=== PATIENT | female | born 1930 | race Caucasian/White ===

== ENCOUNTER 2017-01-21 17:38 | Emergency (ER) | payer OTHER ==
--- NOTE | 2017-01-21 18:06 | EDPHY ---
H & P Time Seen by Provider: 01/21/17 18:05 HPI/ROS: CHIEF COMPLAINT: Shortness of breath. HISTORY OF PRESENT ILLNESS: 86-year-old female with CHF presents with shortness of breath. Last night at 2100 she developed shortness of breath while watching television. She describes the shortness of breath as feeling like she couldn't take a deep breath. The shortness of breath worsened with lying flat. She fell asleep at 0400 and felt better after sleeping for 2 hours. When she awoke, her symptoms completely resolved. She has been asymptomatic today. No shortness of breath with exertion or at rest. She denies associated chest pain. No leg pain, chills, myalgia, cough, or other complaints. She has a history of similar symptoms related to CHF. No recent change in medications. REVIEW OF SYSTEMS: A complete 10-point review of systems was performed and is negative except for those items mentioned in the HPI. Past Medical/Surgical History: Macular degeneration, hypertension, diabetes, CVA, CHF, left total knee replacement, chronic LLE swelling, NH, renal insufficiency. Social History: Former smoker. Smoking Status: Former smoker Physical Exam: General Appearance: Alert, pleasant Eyes: Pupils equal and round, no conjunctival pallor or injection ENT, Mouth: Mucous membranes moist Neck: Normal inspection Respiratory: Rales at both bases Cardiovascular: Regular rate and rhythm Gastrointestinal: Abdomen is soft and non-tender Neurological: A&O, nonfocal, normal gait Skin: Warm and dry, no rash Extremities: 1+ pedal edema, left greater than right, Nontender Psychiatric: Mood and affect normal Constitutional: Initial Vital Signs Temperature (C) 36.4 C 01/21/17 17:39 Heart Rate 67 01/21/17 17:39 Respiratory Rate 18 01/21/17 17:39 Blood Pressure 170/70 H 01/21/17 17:39 O2 Sat (%) 91 L 01/21/17 17:39 O2 Delivery Mode Room Air Allergies/Adverse Reactions: Iodinated Contrast Media - Oral and [Iodinated Contrast Media - IV Dye] Allergy (Severe, Verified 01/21/17 17:39) renal failure Penicillins Allergy (Mild, Verified 01/21/17 17:43) Rash contrast Allergy (Uncoded 01/23/15 17:29) Home Medications: Medication Instructions Recorded Acetaminophen [Tylenol 325mg (*)] 650 mg PO Q6 PRN 01/23/15 Aspirin EC [Aspirin EC 81 mg (*)] 81 mg PO DAILY 01/23/15 Amiodarone HCl [Pacerone] 100 mg PO DAILY #30 tablet 02/08/15 Insulin Glargine [Lantus 100 11 units SC HS #1 btl 02/08/15 UNITS/ML (*)] Insulin Lispro [humALOG LISPRO 100 0 unit SC TIDMEAL #1 btl 02/08/15 units/ml (*)] Metoprolol Tartrate [Lopressor 25 25 mg PO BID #60 tab 02/08/15 mg (*)] Pravastatin Sodium [Pravachol] 40 mg PO HS #30 tablet 02/08/15 Warfarin Sodium [Coumadin 2MG (*)] 2 mg PO TU@16 #4 tab 02/08/15 Warfarin Sodium [Coumadin 4MG (*)] 4 mg PO SUMOWETHFRSA@16 #28 tab 02/08/15 amLODIPine BESYLATE [Norvasc 10 mg 10 mg PO HS #30 tab 02/08/15 (*)] Furosemide [Lasix 20 MG (*)] 20 mg PO DAILY #3 tab 01/21/17 Medical Decision Making - Diagnostics EKG Interpretation: EKG interpreted by me reveals normal sinus rhythm, rate 66, poor R-wave progression, in no ST or T segment changes. Imaging: Chest x-ray reviewed by me reveals cardiomegaly. ED Course/Re-evaluation: This patient presents more than 12 hours after an episode of shortness of breath. She has been asymptomatic throughout the day. Oxygen saturation is 93 % on room air. Stat EKG reveals no evidence ischemia or dysrhythmia. Chest x- ray reveals cardiomegaly, but no evidence of pulmonary edema. BNP is elevated at 1800 and troponin is normal. With a normal troponin, now greater than 12 hours after the episode, I feel that I can safely exclude exclude acute coronary syndrome. Given the elevated BNP, she may a component of congestive heart failure. Admission was offered, but the patient declines. I will give her Lasix 20 mg orally for 3 days. Her daughter will stay with her tonight. Patient was strongly encouraged to call 911 if she has recurrent episodes or other concerns. Differential Diagnosis: Differential diagnosis includes though it is not limited to pneumonia, pneumothorax, pulmonary embolism, aortic dissection, pericarditis, acute coronary syndrome. - Data Points Laboratory Results: Laboratory Results 01/21/17 18:10 01/21/17 18:10 Medications Given: Discontinued Medications Furosemide (Lasix) 20 mg PO EDNOW ONE Stop: 01/21/17 19:13 Last Admin: 01/21/17 19:37 Dose: 20 mg Departure - Departure Disposition: Home, Routine, Self-Care Clinical Impression: Shortness of breath Condition: Good Instructions: Dyspnea (ED) Additional Instructions: Take the Lasix as prescribed. Follow up with your primary care provider tomorrow. You have been provided the telephone number of the on-call outpatient doctor if you need a primary care provider. Return to the emergency department if you experience recurrent shortness of breath, chest pain or any serious worsening of condition. Referrals: Diogo Galicia MD [Medical Doctor] - 1 day without fail Prescriptions: Furosemide [Lasix 20 MG (*)] 20 mg PO DAILY #3 tab Report Scribed for: Hanna Gayle Report Scribed by: Camden Freedman Date of Report: 01/21/17 Time of Report: 18:06 Physician Review and Approval Statement: 01/21/17 18:06 Portions of this note were transcribed by a anesthesiology medical doctor. I personally performed a history, physical exam, medical decision making, and confirmed accuracy of information the transcribed note.
[2017-01-21 18:18] LABS: % IMMATURE GRANULYOCYTES 0.4 % (0.0-1.1); ABSOLUTE IMMATURE GRANULOCYTES 0.03 10^3/uL (0.00-0.10); ADD DIFF? NO; ADD MORPH? NO; ADD SCAN? NO; ATYPICAL LYMPHOCYTE FLAG 0 (0-99); FRAGMENT RBC FLAG 0 (0-99); HEMOGLOBIN 13.2 g/dL (12.6-16.3); LEFT SHIFT FLG 0 (0-99); LIPEMIA HEMOLYSIS FLAG 90 (0-99); MEAN CELL HEMOGLOBIN 30.6 pg (27.9-34.1); MEAN CELL HEMOGLOBIN CONCENTR. 33.8 g/dL (32.4-36.7); MEAN CELL VOLUME 90.5 fL (81.5-99.8); MEAN PLATELET VOLUME 10.7 fL (8.7-11.7); PLATELET CLUMPS FLAG 10 (0-99); PLATELET COUNT 192 10^3/uL (150-400); RED BLOOD CELL COUNT 4.31 10^6/uL (4.18-5.33); RED CELL DISTRIBUTION WIDTH 13.4 % (11.5-15.2)
[2017-01-21 18:43] LABS: ANION GAP 9 mEq/L (8-16); CALCIUM 8.9 mg/dL (8.5-10.4); CARBON DIOXIDE 26 mEq/l (22-31); CHLORIDE 104 mEq/L (97-110); CREATININE 1.3 mg/dL (0.6-1.0); GLOMERULAR FILTRATION RATE 39; GLUCOSE 147 mg/dL (70-100); POTASSIUM 4.1 mEq/L (3.5-5.2); SODIUM 139 mEq/L (134-144)
[2017-01-21 18:55] LABS: TROPONIN I 0.012 ng/mL (0-0.034)
[2017-01-21] MEDS ORDERED: FUROSEMIDE 20 MG TAB PO ONE (19:12)
[2017-01-21 19:40] VITALS: BP 168/90; PULSE 80; RESP 14; TEMP 98.4; O2SAT 94
--- NOTE | 2017-01-21 19:47 | CPEKG ---
Heart Rate: 66 RR Interval: 909 P-R Interval: 184 QRSD Interval: 90 QT Interval: 448 QTC Interval: 470 P [place]: 78 QRS [place]: 71 T Wave [place]: 55 EKG Severity - ABNORMAL ECG - EKG Impression: SINUS RHYTHM EKG Impression: poor R wave progression Electronically Signed By: Hanna Gayle 21-Jan-2017 21:22:14
== END 2017-01-21 19:38 | disposition home or self-care (01) ==
DX: R06.02 Shortness of breath (principal); I10 Essential (primary) hypertension; E11.9 Type 2 diabetes mellitus without complications; I50.9 Heart failure, unspecified; I25.2 Old myocardial infarction; Z79.01 Long term (current) use of anticoagulants; Z87.891 Personal history of nicotine dependence; Z79.82 Long term (current) use of aspirin; Z79.4 Long term (current) use of insulin

== ENCOUNTER 2017-02-25 13:43 | Emergency (ER) | payer OTHER ==
[2017-02-25 13:55] VITALS: BP 162/59; PULSE 68; RESP 18; TEMP 98.1; O2SAT 93
[2017-02-25 14:17] LABS: % IMMATURE GRANULYOCYTES 0.3 % (0.0-1.1); ABSOLUTE IMMATURE GRANULOCYTES 0.02 10^3/uL (0.00-0.10); ADD DIFF? NO; ADD MORPH? NO; ADD SCAN? NO; ATYPICAL LYMPHOCYTE FLAG 0 (0-99); FRAGMENT RBC FLAG 0 (0-99); HEMATOCRIT 39.1 % (38.0-47.0); HEMOGLOBIN 13.2 g/dL (12.6-16.3); LEFT SHIFT FLG 0 (0-99); LIPEMIA HEMOLYSIS FLAG 90 (0-99); MEAN CELL HEMOGLOBIN 30.8 pg (27.9-34.1); MEAN CELL HEMOGLOBIN CONCENTR. 33.8 g/dL (32.4-36.7); MEAN CELL VOLUME 91.4 fL (81.5-99.8); MEAN PLATELET VOLUME 10.7 fL (8.7-11.7); PLATELET CLUMPS FLAG 0 (0-99); PLATELET COUNT 202 10^3/uL (150-400); RED BLOOD CELL COUNT 4.28 10^6/uL (4.18-5.33)
--- NOTE | 2017-02-25 14:18 | EDPHY ---
H & P Smoking Status: Former smoker Time Seen by Provider: 02/25/17 13:59 HPI/ROS: CHIEF COMPLAINT: Left forearm skin tear HISTORY OF PRESENT ILLNESS: 86-year-old female on daily warfarin, history of cardiac stents, sustained accidental left dorsal forearm injury 2 days ago, bumped performed noticed a small skin tear. Primary concern however is ecchymotic discoloration extending distally. No paresthesia or sensory or motor deficits. No underlying osseous pain. PHYSICAL EXAM (Prior to examination, patient consented to physical exam, hands were washed and my usual and customary physical exam procedures followed) 1) GENERAL: Well-developed, well-nourished, alert and oriented. Appears to be in no acute distress. 2) HEAD: Normocephalic 3) HEENT: sclera anicteric 4) LUNGS: Breathing comfortably. 5) SKIN: left dorsal forearm 2 cm skin tear granulating appropriately with no signs of infection. There is surrounding ecchymotic discoloration with soft compartments. Ecchymotic discoloration extends primarily in the dependent/ distal manner. 6) MUSCULOSKELETAL: soft compartments 7) NEUROLOGIC: Full sensation. Radial ulnar median nerve function intact distally. (Braden Johnston Cece) Constitutional: Initial Vital Signs Temperature (C) 36.7 C 02/25/17 13:53 Heart Rate 68 02/25/17 13:53 Respiratory Rate 18 02/25/17 13:53 Blood Pressure 162/59 H 02/25/17 13:53 O2 Sat (%) 93 02/25/17 13:53 O2 Delivery Mode Room Air Allergies/Adverse Reactions: Iodinated Contrast Media - Oral and [Iodinated Contrast Media - IV Dye] Allergy (Severe, Verified 02/25/17 13:47) renal failure Penicillins Allergy (Mild, Verified 02/25/17 13:47) Rash contrast Allergy (Uncoded 01/23/15 17:29) Home Medications: Medication Instructions Recorded Acetaminophen [Tylenol 325mg (*)] 650 mg PO Q6 PRN 01/23/15 Aspirin EC [Aspirin EC 81 mg (*)] 81 mg PO DAILY 01/23/15 Amiodarone HCl [Pacerone] 100 mg PO DAILY #30 tablet 02/08/15 Insulin Glargine [Lantus 100 11 units SC HS #1 btl 02/08/15 UNITS/ML (*)] Insulin Lispro [humALOG LISPRO 100 0 unit SC TIDMEAL #1 btl 02/08/15 units/ml (*)] Metoprolol Tartrate [Lopressor 25 25 mg PO BID #60 tab 02/08/15 mg (*)] Pravastatin Sodium [Pravachol] 40 mg PO HS #30 tablet 02/08/15 Warfarin Sodium [Coumadin 2MG (*)] 2 mg PO TU@16 #4 tab 02/08/15 Warfarin Sodium [Coumadin 4MG (*)] 4 mg PO SUMOWETHFRSA@16 #28 tab 02/08/15 amLODIPine BESYLATE [Norvasc 10 mg 10 mg PO HS #30 tab 02/08/15 (*)] Furosemide [Lasix 20 MG (*)] 20 mg PO DAILY #3 tab 01/21/17 MDM/Departure - [facility] ED Course/Re-evaluation: Patient was concerned about the ecchymotic discoloration. INR and CBC obtained and results discussed with patient. Doubt compartment syndrome. Recommend elevation. She is neurovascular intact. Do not think that further intervention currently indicated. Recommend follow up with her port steward Dr. David Pereira. At 2:25 p.m. the patient is INR still pending however she would like to leave. I recommend she stay and/or INR results are returned however she would like to leave. 3:19 p.m.: Patient's INR is 3.2. I spoke with the patient at this time via telephone. She had not taken her dose of Coumadin today yet. Recommend she skip today's dose and continue as normal tomorrow. (Braden Johnston) I did not see this patient while she was in the emergency department. However her care was discussed with the PA while the patient was in the department. I agree with treatment plan and management (Elton Arrieta) - Depart Disposition: Home, Routine, Self-Care Clinical Impression: Skin tear of left forearm without complication Qualifiers: Encounter type: initial encounter Qualified Code(s): S51.812A - Laceration without foreign body of left forearm, initial encounter Traumatic ecchymosis of left forearm Qualifiers: Encounter type: initial encounter Qualified Code(s): S50.12XA - Contusion of left forearm, initial encounter Condition: Good Instructions: Skin Tear (ED), Ecchymosis (ED) Additional Instructions: Keep your arm elevated above the level of your heart whenever possible. Referrals: SHANTA KING NP [Other] - 1-2 days without fail David Pereira MD [Medical Doctor] - 1-2 days without fail
[2017-02-25 14:28] LABS: INR 3.22 (0.83-1.16); PROTIME(PATIENT) 33.4 SEC (12.0-15.0)
[2017-02-25 14:29] LABS: APTT 36.3 SEC (23.0-38.0)
== END 2017-02-25 14:38 | disposition home or self-care (01) ==
DX: S51.812A Laceration without foreign body of left forearm, initial encounter (principal); S50.12XA Contusion of left forearm, initial encounter; Z79.01 Long term (current) use of anticoagulants; Z79.82 Long term (current) use of aspirin; X58.XXXA Exposure to other specified factors, initial encounter

== ENCOUNTER 2017-03-06 13:21 | Emergency (ER) | payer OTHER ==
--- NOTE | 2017-03-06 13:30 | EDPHY ---
H & P Stated Complaint: hx chf/increasing sob Time Seen by Provider: 03/06/17 13:27 HPI/ROS: CHIEF COMPLAINT: Dyspnea HISTORY OF PRESENT ILLNESS: The patient presents to the ED with complaints of orthopnea and PND for the past 2 days. The patient does have a history of congestive heart failure. She took her regular dose of Lasix this morning. She denies significant increase in her peripheral edema. She denies weight gain. The patient is currently anticoagulated and has been compliant with her typical Coumadin therapy. Patient denies fever, cough or congestion. The patient denies abdominal pain, vomiting or diarrhea. Her dyspnea is mild in nature. REVIEW OF SYSTEMS: A comprehensive 10 point review of systems is otherwise negative aside from elements mentioned in the history of present illness. 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,Hypertension,diabetes, CVA,CHF, total knee 2013,foramen ovale,renal insufficency - Social History Smoking Status: Former smoker - Physical Exam Exam: General Appearance: Alert, no distress Eyes: Pupils equal and round no pallor or injection ENT, Mouth: Mucous membranes moist Respiratory: There are no retractions, lungs are clear to auscultation Cardiovascular: Regular rate and rhythm Gastrointestinal: Abdomen is soft and nontender, no masses, bowel sounds normal Neurological: A&O, normal motor function, normal sensory exam, normal cranial nerves Skin: Warm and dry, no rashes Musculoskeletal: Neck is supple nontender Extremities: symmetrical, full range of motion Constitutional: Initial Vital Signs Temperature (C) 36.6 C 03/06/17 13:23 Heart Rate 76 03/06/17 13:23 Respiratory Rate 26 H 03/06/17 13:23 Blood Pressure 159/52 H 03/06/17 13:23 O2 Sat (%) 88 L 03/06/17 13:23 O2 Delivery Mode Room Air O2 (L/minute) 2 Allergies/Adverse Reactions: Iodinated Contrast Media - Oral and [Iodinated Contrast Media - IV Dye] Allergy (Severe, Verified 03/06/17 13:22) renal failure Penicillins Allergy (Mild, Verified 03/06/17 13:22) Rash contrast Allergy (Uncoded 01/23/15 17:29) Home Medications: Medication Instructions Recorded Acetaminophen [Tylenol 325mg (*)] 650 mg PO Q6 PRN 01/23/15 Aspirin EC [Aspirin EC 81 mg (*)] 81 mg PO DAILY 01/23/15 Amiodarone HCl [Pacerone] 100 mg PO DAILY #30 tablet 02/08/15 Insulin Glargine [Lantus 100 11 units SC HS #1 btl 02/08/15 UNITS/ML (*)] Insulin Lispro [humALOG LISPRO 100 0 unit SC TIDMEAL #1 btl 02/08/15 units/ml (*)] Metoprolol Tartrate [Lopressor 25 25 mg PO BID #60 tab 02/08/15 mg (*)] Pravastatin Sodium [Pravachol] 40 mg PO HS #30 tablet 02/08/15 Warfarin Sodium [Coumadin 2MG (*)] 2 mg PO TU@16 #4 tab 02/08/15 Warfarin Sodium [Coumadin 4MG (*)] 4 mg PO SUMOWETHFRSA@16 #28 tab 02/08/15 amLODIPine BESYLATE [Norvasc 10 mg 10 mg PO HS #30 tab 02/08/15 (*)] Furosemide [Lasix 20 MG (*)] 20 mg PO DAILY #3 tab 01/21/17 Medical Decision Making - Diagnostics EKG Interpretation: EKG: Complete interpretation has been separately recorded in the [employer] archive. Summary impression: Sinus rhythm Imaging: Imaging Impressions Chest X-Ray 03/06/17 13:31 Impression: 1. COPD. Minimal bibasilar interstitial lung disease versus superimposed interstitial edema. 2. Cardiomegaly. No federico failure or effusion. ED Course/Re-evaluation: I reviewed the patient's past medical records including her ED visit in December where she presented with shortness of breath and was diagnosed with mild congestive heart failure. She was given Lasix in the emergency department at that time and discharged home. The patient was noted to be mildly hypoxemic with a room air oxygen saturation in triage of 88%. The patient was placed on a property assessment monitor. She received supplemental oxygen in the ED. The patient does have a slight elevation of her baseline proBNP. She received 20 mg of IV Lasix. She is noted to have normal renal function. 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 She will return to the ED this weekend should she have any worsening chest pain or shortness of breath. I have asked her to double her daily dose of Lasix for the next 3 days. The patient has no evidence of acute ischemia on her EKG. Her troponin is normal. Her chest x-ray is unimpressive. I spoke with Yuko the SEWING MACHINE ASSEMBLER at [facility] and she will make sure the patient gets follow up on Thursday. Differential Diagnosis: Differential diagnosis considered includes congestive heart failure, myocardial infarction, pneumonia, pneumothorax - Data Points Laboratory Results: Laboratory Results 03/06/17 13:50 03/06/17 13:50 03/06/17 03/06/17 03/06/17 13:50 13:50 13:50 WBC 7.39 10^3/uL 10^3/uL (3.80-9.50) RBC 3.85 10^6/uL L 10^6/uL (4.18-5.33) Hgb 11.6 g/dL L g/dL (12.6-16.3) Hct 35.2 % L % (38.0-47.0) MCV 91.4 fL fL (81.5-99.8) MCH 30.1 pg pg (27.9-34.1) MCHC 33.0 g/dL g/dL (32.4-36.7) RDW 14.3 % % (11.5-15.2) Plt Count 190 10^3/uL 10^3/uL (150-400) MPV 11.3 fL fL (8.7-11.7) Neut % (Auto) 72.1 % % (39.3-74.2) Lymph % (Auto) 18.9 % % (15.0-45.0) [place] % (Auto) 6.2 % % (4.5-13.0) Eos % (Auto) 2.2 % % (0.6-7.6) Baso % (Auto) 0.3 % % (0.3-1.7) Nucleat RBC Rel Count 0.0 % % (0.0-0.2) Absolute Neuts (auto) 5.33 10^3/uL 10^3/uL (1.70-6.50) Absolute Lymphs (auto) 1.40 10^3/uL 10^3/uL (1.00-3.00) Absolute Monos (auto) 0.46 10^3/uL 10^3/uL (0.30-0.80) Absolute Eos (auto) 0.16 10^3/uL 10^3/uL (0.03-0.40) Absolute Basos (auto) 0.02 10^3/uL 10^3/uL (0.02-0.10) Absolute Nucleated RBC 0.00 10^3/uL 10^3/uL (0-0.01) Immature Gran % 0.3 % % (0.0-1.1) Immature Gran # 0.02 10^3/uL 10^3/uL (0.00-0.10) PT 28.3 SEC H SEC (12.0-15.0) INR 2.62 H (0.83-1.16) Sodium 137 mEq/L mEq/L (134-144) Potassium 4.4 mEq/L mEq/L (3.5-5.2) Chloride 102 mEq/L mEq/L (97-110) Carbon Dioxide 27 mEq/l mEq/l (22-31) Anion Gap 8 mEq/L mEq/L (8-16) BUN 29 mg/dL H mg/dL (7-23) Creatinine 1.3 mg/dL H mg/dL (0.6-1.0) Estimated GFR 39 Glucose 364 mg/dL H mg/dL (70-100) Calcium 8.5 mg/dL mg/dL (8.5-10.4) Troponin I 0.014 ng/mL ng/mL (0-0.034) NT-Pro-B Natriuret Pep 2680 pg/mL H pg/mL (0-450) Medications Given: Discontinued Medications Furosemide (Lasix Injection) 20 mg IVP EDNOW ONE Stop: 03/06/17 14:33 Last Admin: 03/06/17 14:52 Dose: 20 mg Departure - Departure Disposition: Home, Routine, Self-Care Clinical Impression: Acute exacerbation of congestive heart failure Condition: Good Instructions: Heart Failure (ED) Additional Instructions: 1. Please double your dose of Lasix for the next 3 days. 2. Please follow up with Cardiology on Thursday of next week. 3. Please return to the ED this weekend for any worsening chest pain, shortness of breath or other concerns. Referrals: Christian Scott MD [Medical Doctor] - As per Instructions
--- NOTE | 2017-03-06 13:44 | CPEKG ---
Heart Rate: 66 RR Interval: 909 P-R Interval: 188 QRSD Interval: 96 QT Interval: 448 QTC Interval: 470 P [place]: 78 QRS [place]: 50 T Wave [place]: 48 EKG Severity - ABNORMAL ECG - EKG Impression: SINUS RHYTHM EKG Impression: movement artifact Electronically Signed By: Dallas Larios 06-Mar-2017 14:26:47
[2017-03-06 14:00] LABS: % IMMATURE GRANULYOCYTES 0.3 % (0.0-1.1); ABSOLUTE IMMATURE GRANULOCYTES 0.02 10^3/uL (0.00-0.10); ADD DIFF? NO; ADD MORPH? NO; ADD SCAN? NO; ATYPICAL LYMPHOCYTE FLAG 10 (0-99); FRAGMENT RBC FLAG 0 (0-99); HEMATOCRIT 35.2 % (38.0-47.0); HEMOGLOBIN 11.6 g/dL (12.6-16.3); LEFT SHIFT FLG 0 (0-99); LIPEMIA HEMOLYSIS FLAG 80 (0-99); MEAN CELL HEMOGLOBIN 30.1 pg (27.9-34.1); MEAN CELL VOLUME 91.4 fL (81.5-99.8); MEAN PLATELET VOLUME 11.3 fL (8.7-11.7); PLATELET CLUMPS FLAG 0 (0-99); PLATELET COUNT 190 10^3/uL (150-400); RED BLOOD CELL COUNT 3.85 10^6/uL (4.18-5.33); RED CELL DISTRIBUTION WIDTH 14.3 % (11.5-15.2)
[2017-03-06 14:10] LABS: INR 2.62 (0.83-1.16); PROTIME(PATIENT) 28.3 SEC (12.0-15.0)
--- NOTE | 2017-03-06 14:18 | CPEKG ---
Heart Rate: 65 RR Interval: 923 P-R Interval: 184 QRSD Interval: 88 QT Interval: 460 QTC Interval: 479 P [place]: 67 QRS [place]: 39 T Wave [place]: 67 EKG Severity - ABNORMAL ECG - EKG Impression: SINUS RHYTHM Electronically Signed By: Dallas Larios 06-Mar-2017 14:27:11
[2017-03-06 14:21] LABS: ANION GAP 8 mEq/L (8-16); CALCIUM 8.5 mg/dL (8.5-10.4); CARBON DIOXIDE 27 mEq/l (22-31); CHLORIDE 102 mEq/L (97-110); CREATININE 1.3 mg/dL (0.6-1.0); GLOMERULAR FILTRATION RATE 39; GLUCOSE 364 mg/dL (70-100); POTASSIUM 4.4 mEq/L (3.5-5.2); SODIUM 137 mEq/L (134-144)
[2017-03-06 14:25] VITALS: RESP 20; O2SAT 98
[2017-03-06 14:31] LABS: TROPONIN I 0.014 ng/mL (0-0.034)
[2017-03-06] MEDS ORDERED: FUROSEMIDE 20 MG/2 ML VIAL IVP ONE (14:32)
[2017-03-06 15:29] VITALS: BP 135/63; PULSE 64; TEMP 98.1
== END 2017-03-06 15:29 | disposition home or self-care (01) ==
DX: I50.9 Heart failure, unspecified (principal); E11.9 Type 2 diabetes mellitus without complications; I10 Essential (primary) hypertension; I25.2 Old myocardial infarction; Z79.01 Long term (current) use of anticoagulants; Z79.4 Long term (current) use of insulin; Z79.82 Long term (current) use of aspirin; Z86.73 Personal history of transient ischemic attack (TIA), and cerebral infarction without residual deficits; Z87.891 Personal history of nicotine dependence
CPT/HCPCS: 96374

== ENCOUNTER 2017-03-20 13:29 | Emergency (ER) | payer OTHER ==
[2017-03-20 13:59] VITALS: TEMP 98.1; O2SAT 90
--- NOTE | 2017-03-20 14:18 | EDPHY ---
H & P Stated Complaint: BS > 600 HPI/ROS: CHIEF COMPLAINT: High blood glucose level. HISTORY OF PRESENT ILLNESS: The patient is an 86-year-old female with a history of diabetes who presents with high blood sugar. She had routine blood work drawn this morning and was sent to the ED for reevaluation when her blood glucose returned at 636. She has been compliant with her insulin (10 units at night) but has not checked her blood sugar in over 6 months because she does not like to poke her finger. She denies recent sickness, fever, cough, sore throat, chest pain, shortness of breath, abdominal pain, urinary symptoms, vomiting, diarrhea, constipation, recent weight gain. REVIEW OF SYSTEMS: A ten point review of systems was performed and is negative with the exception of the items mentioned in the HPI. 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 Hypertension. Diabetes. CVA. CHF. Total knee replacement. [place]. Renal insufficency. CHF - Social History Smoking Status: Former smoker Additional Social History: Former smoker. Lives alone at home with her 8 pound Abdi Cooper. No recreational drug use. - Physical Exam Exam: General Appearance: Alert. Vital signs reviewed. Triage blood pressure 95/ 53. Blood pressure 141/77. Eyes: Pupils equal and round, no conjunctival injection, no discharge. Anicteric. ENT, Mouth: Mucous membranes are moist, no oropharyngeal erythema or edema. Neck: No lymphadenopathy, supple. Respiratory: Lungs are clear to auscultation but breath sounds are distant; no wheezes, rales, or rhonchi. Cardiovascular: Regular rate and rhythm; no murmur, rub, or gallop. Gastrointestinal: Abdomen is soft and nontender, no masses or organomegaly, bowel sounds normal. Skin: Warm and dry, no rashes on exposed skin, normal color. Back: Nontender to palpation over the thoracolumbar spine. No CVAT. Extremities: No calf tenderness. 1+ lower extremity edema bilaterally. Neurological: Alert and oriented. Moving all four extremities easily and equally. KOTA. EOMI. Facial expressions symmetric. Tongue midline. Psychiatric: Normal affect. Constitutional: Initial Vital Signs Temperature (C) 36.7 C 03/20/17 13:56 Heart Rate 60 03/20/17 13:56 Respiratory Rate 17 03/20/17 13:56 Blood Pressure 95/53 L 03/20/17 13:56 O2 Sat (%) 90 L 03/20/17 13:56 O2 Delivery Mode Room Air Allergies/Adverse Reactions: Iodinated Contrast Media - Oral and [Iodinated Contrast Media - IV Dye] Allergy (Severe, Verified 03/06/17 13:22) renal failure Penicillins Allergy (Mild, Verified 03/06/17 13:22) Rash contrast Allergy (Uncoded 01/23/15 17:29) Home Medications: Medication Instructions Recorded Acetaminophen [Tylenol 325mg (*)] 650 mg PO Q6 PRN 01/23/15 Aspirin EC [Aspirin EC 81 mg (*)] 81 mg PO DAILY 01/23/15 Amiodarone HCl [Pacerone] 100 mg PO DAILY #30 tablet 02/08/15 Insulin Glargine [Lantus 100 11 units SC HS #1 btl 02/08/15 UNITS/ML (*)] Insulin Lispro [humALOG LISPRO 100 0 unit SC TIDMEAL #1 btl 15 units/ml (*)] Metoprolol Tartrate [Lopressor 25 25 mg PO BID #60 tab 02/08/15 mg (*)] Pravastatin Sodium [Pravachol] 40 mg PO HS #30 tablet 02/08/15 Warfarin Sodium [Coumadin 2MG (*)] 2 mg PO TU@16 #4 tab 02/08/15 Warfarin Sodium [Coumadin 4MG (*)] 4 mg PO SUMOWETHFRSA@16 #28 tab 02/08/15 amLODIPine BESYLATE [Norvasc 10 mg 10 mg PO HS #30 tab 02/08/15 (*)] Furosemide [Lasix 20 MG (*)] 20 mg PO DAILY #3 tab 01/21/17 Medical Decision Making ED Course/Re-evaluation: 86-year-old female with a history of diabetes presents after her routine blood work this morning showed a blood glucose level of 636. She has no associated symptoms and no complaints at all today. She is here only because she was asked to come in because of abnormal labs. An IV was established. ISTAT obtained. ISTAT glucose 547. Creatinine 1.7, unchanged from this morning. Chest x-ray interpreted by myself and radiology shows mild cardiomegaly. No overt congestive heart failure. I spoke with Dr. Medardo Mcguire at the [facility] where she sees the physician exceptional children teacher assistant, Luke Oscar. He recommends increasing Ms. Cullen's nighttime insulin to 20 units Lantus. She had been on this dose recently but was cut back because she was having some hypoglycemia in the mornings. It has been months since she checked her blood sugars. She has agreed to increase her insulin to 20 units and to resume checking her blood sugars. She will follow up in the clinic early next week. We discussed the danger signs that should prompt her to be re-evaluated. I have not found evidence of an infection. She did not urinate while in the emergency department so no urinalysis has been done ; she denies urinary symptoms She does not appear ill. She has no complaints. I do not suspect ketoacidosis. Carbon dioxide an anion gap were normal in this morning's labs. I suspect that her blood sugars have been out of control for some time. Her primary care providers will follow up on this. She understands the importance of close follow-up in this setting. We reviewed the danger signs that should prompt her to be re-evaluated in the emergency department. She is not interested in further emergency department treatment or evaluation. She was re-evaluated just before discharge. At that time her room air pulse ox was 92%. Departure - Departure Disposition: Home, Routine, Self-Care Clinical Impression: Hyperglycemia Condition: Good Instructions: Diabetic Hyperglycemia (ED) Additional Instructions: Please increase her nighttime insulin dose to 20 units Lantus. Start checking your blood sugars again. I recommend that you check your blood sugar in the morning. Eat regular meals. If you develop fever, vomiting, abdominal pain, any difficulty urinating, chest pain, shortness of breath, any new or concerning symptoms--please return to the emergency department for another evaluation. Referrals: SHANTA [facility]ING [facility]ELT WHEELER [Other] - As per Instructions Report Scribed for: Ana Savage Report Scribed by: Camden Freedman Date of Report: 03/20/17 Time of Report: 14:20 Physician Review and Approval Statement: 03/20/17 14:18 Portions of this note were transcribed by the medical or surgical instrument maker. I, Dr. Ana Savage, personally performed the history, physical exam, and medical decision- making; and confirmed the accuracy of the information in the transcribed note.
[2017-03-20 15:54] VITALS: BP 141/77; PULSE 62; RESP 18
== END 2017-03-20 15:52 | disposition home or self-care (01) ==
DX: E11.65 Type 2 diabetes mellitus with hyperglycemia (principal); I10 Essential (primary) hypertension; I50.9 Heart failure, unspecified; I25.2 Old myocardial infarction; Z79.01 Long term (current) use of anticoagulants; Z79.4 Long term (current) use of insulin; Z79.82 Long term (current) use of aspirin; Z86.73 Personal history of transient ischemic attack (TIA), and cerebral infarction without residual deficits; Z87.891 Personal history of nicotine dependence
CPT/HCPCS: 82947-QW

== ENCOUNTER 2017-04-07 11:42 | Day surgery (SDC) | payer OTHER ==
[2017-04-07] MEDS ORDERED: NS 1,000 ML IV ONE (12:04)
[2017-04-07] MEDS ORDERED: ASPIRIN EC 325 MG TAB PO ONE ×2 (12:04→12:26)
[2017-04-07] MEDS ORDERED: diphenhydrAMINE 25 MG CAP PO ONE ×2 (12:04→12:26)
[2017-04-07] MEDS ORDERED: FAMOTIDINE 20 MG TAB PO ONE (12:04)
[2017-04-07] MEDS ORDERED: DIAZEPAM 5 MG TAB PO ONE (12:04)
[2017-04-07] MEDS ORDERED: methylPREDNISolone SOD SUCC 125 MG/2 ML VIAL IVP ONE (12:05)
[2017-04-07] MEDS ORDERED: FAMOTIDINE 20 MG/NACL 50 ML IV ONE (12:05)
[2017-04-07 12:24] LABS: % IMMATURE GRANULYOCYTES 0.3 % (0.0-1.1); ABSOLUTE IMMATURE GRANULOCYTES 0.02 10^3/uL (0.00-0.10); ADD DIFF? NO; ADD MORPH? NO; ADD SCAN? NO; ATYPICAL LYMPHOCYTE FLAG 20 (0-99); FRAGMENT RBC FLAG 0 (0-99); HEMATOCRIT 39.8 % (38.0-47.0); HEMOGLOBIN 12.9 g/dL (12.6-16.3); LEFT SHIFT FLG 0 (0-99); LIPEMIA HEMOLYSIS FLAG 80 (0-99); MEAN CELL HEMOGLOBIN 30.7 pg (27.9-34.1); MEAN CELL HEMOGLOBIN CONCENTR. 32.4 g/dL (32.4-36.7); MEAN CELL VOLUME 94.8 fL (81.5-99.8); MEAN PLATELET VOLUME 10.6 fL (8.7-11.7); PLATELET CLUMPS FLAG 0 (0-99); PLATELET COUNT 224 10^3/uL (150-400); RED CELL DISTRIBUTION WIDTH 13.7 % (11.5-15.2)
[2017-04-07] MEDS ORDERED: methylPREDNISolone SOD SUCC 125 MG/2 ML VIAL ONE (12:25)
[2017-04-07] MEDS ORDERED: FAMOTIDINE 20 MG/NACL/50 ML BAG IV ONE (12:25)
[2017-04-07] MEDS ORDERED: EPINEPHrine 1 MG/10 ML SYR IVP ONE (12:25)
[2017-04-07] MEDS ORDERED: FAMOTIDINE 20 MG TAB ONE (12:26)
[2017-04-07] MEDS ORDERED: DIAZEPAM 5 MG TAB ONE (12:27)
[2017-04-07 12:34] LABS: INR 1.08 (0.83-1.16); PROTIME(PATIENT) 13.9 SEC (12.0-15.0)
[2017-04-07 12:53] LABS: ANION GAP 10 mEq/L (8-16); CALCIUM 8.8 mg/dL (8.5-10.4); CARBON DIOXIDE 30 mEq/l (22-31); CHLORIDE 103 mEq/L (97-110); CHOLESTEROL 123 mg/dL (140-220); CHOLESTEROL/HDL RATIO 2.86 RATIO (1.00-4.44); CREATININE 1.6 mg/dL (0.6-1.0); GLOMERULAR FILTRATION RATE 31; GLUCOSE 150 mg/dL (70-100); HIGH DENSITY LIPOPROTEIN 43 mg/dL (40-85); LDL/HDL RATIO 1.23 RATIO (1.00-3.22); LOW DENSITY LIPOPROTEIN 53 mg/dL (80-100); MAGNESIUM 2.4 mg/dL (1.6-2.3); NON-HIGH DENSITY LIPOPROTEIN 80 mg/dL (90-129); POTASSIUM 4.4 mEq/L (3.5-5.2); SODIUM 143 mEq/L (134-144); TRIGLYCERIDE 138 mg/dL (35-135); VERY LOW DENSITY LIPOPROTEINS 27 mg/dL (8-25)
[2017-04-07] MEDS ORDERED: MIDAZOLAM 2 MG/2 ML VIAL ONE (12:53)
[2017-04-07] MEDS ORDERED: LIDOCAINE 1% 30 ML SDV ONE ×2 (12:53→14:04)
[2017-04-07] MEDS ORDERED: fentaNYL 100 MCG/2 ML INJ ONE (12:53)
[2017-04-07] MEDS ORDERED: IOPAMIDOL (ISOVUE-370) 150 ML BTL IV ONE (12:53)
--- NOTE | 2017-04-07 14:48 | PDDXCAT ---
Diagnostic Cath Note - . Date: 04/08/17 Intervention: none *Procedure 1. selective coronary angiography 2. left heart catheterization 3. right heart catheterization Indication: CHF, mitral stenosis, NYHA IV. Access: Right femoral artery, right femoral vein. *Materials Left Heart Cath size: 5F Left Heart Cath materials: JL3.5, JR4.0, pigtail Right Heart Cath size: 7F Right Heart Cath materials: PWP *Findings-Selective Coronary Angiography LM: The left main is ~8 mm in size and bifurcates into an LAD and circumflex system. There is no flow-limiting LM disease. LAD: The proximal LAD is ~3.5 mm in size. Previous stenting in mid LAD is widely patent. The first diagonal has >80% stenosis with JOSE III flow. LCX: The left circumflex is dominant and ~3 mm in size with a high OM branch ~ 2 mm in size. There is no flow-limiting disease. RCA: The right coronary artery is non-dominant. There is no flow-limiting disease with JOSE III flow throughout. *Findings-Left Heart Catheterization EDP: 22 mmHg AO: 152/47/85 mmHg Mean mitral valve gradient: 11.6 mmHg Mitral valve area: 1.03 cm^2 *Findings-Right Heart Catheterization RA: 14/9/8 mmHg RV: 50/2/11 mmHg PA: 52/22/36 mmHg PWP: 24/34/24 mmHg CO: 4.08 L/min CI: 2.3 L/min/m^2 PA SAT: 73.3% AO SAT: 94.3% IVC SAT: 75.9% *Summary Complications: None Estimated blood loss: <50ml Closure method: Arteriotomy repair Assessment/Conclusion: 1. [place] vessel coronary artery disease. Previous stenting in the mid LAD is widely patent with JOSE III flow. There was a >80% stenosis of a small diagonal branch; however, intervention was not performed as the vessel was small and not perfusing a significant area. Intervention would be high-risk and unlikely to improve her clinical symptoms. 2. Moderate mitral valve stenosis with mean area measured 1.03 cm^2 and mean gradient 11.6 mmHg. 3. Incidentally noted is a straightened left heart border suggestive of pericardial effusion. I have ordered a limited echocardiogram for further evaluation. (There was a moderate pericardial effusion without echo evidence of tamponade) 4. An LV gram was not performed to reduce the risk of contrast related nephropathy. A total of 40 ml of contrast was used. Patient Problems: Problems Problem Status Onset Hemiplegia of nondominant side following CVA (cerebrovascular accident) Acute
--- NOTE | 2017-04-07 17:36 | ECHO ---
[id number] + + [address] : : [place] [address] : : [phone] + Adult Echocardiographic Report + --------+ :Name: ANGELI FREDERICK MStudy Date: 04/07/2017 04:09 PM : : Hospital Admission Number: [id number] Location: lab clerk: :: 1930 Gender: Female : :Age: 86 yrs Race: WH : :Reason For Study: pericardial effusion : :History: pericadial effusion : + --------+ Conclusion STAT limited echocardiogram in the lab clerk to assess pericardial effusion. Circumferential pericardial effusion noted. Small amount of fluid around the RV free wall and small to moderate around the lateral wall. Final Reading Physician: Dr Selene Saini electronically signed on 04/07/2017 05:35 PM Ordering Physician: Christian Scott Performed By: nAtoinette Block
== END 2017-04-07 18:43 | disposition home or self-care (01) ==
LOC: FCATH 11:42
PROVIDERS: ATTEND Internal Medicine Cardiovascular Disease
PROC: 4A023N8 Measurement of Cardiac Sampling and Pressure, Bilateral, Percutaneous Approach (ICD-10-PCS; principal; 2017-04-07)
PROC: B2111ZZ Fluoroscopy of Multiple Coronary Arteries using Low Osmolar Contrast (ICD-10-PCS; principal; 2017-04-07)
DX: I08.1 Rheumatic disorders of both mitral and tricuspid valves (principal); I09.81 Rheumatic heart failure; I50.32 Chronic diastolic (congestive) heart failure; I31.3 Pericardial effusion (noninflammatory); I25.10 Atherosclerotic heart disease of native coronary artery without angina pectoris; Z95.5 Presence of coronary angioplasty implant and graft; I48.0 Paroxysmal atrial fibrillation; Z79.01 Long term (current) use of anticoagulants; Z86.73 Personal history of transient ischemic attack (TIA), and cerebral infarction without residual deficits; E11.9 Type 2 diabetes mellitus without complications; Z79.4 Long term (current) use of insulin
CPT/HCPCS: C1760; J1200; J1644; J2250; J3010; Q9967

== ENCOUNTER 2017-06-15 14:51 | Emergency (ER) | payer OTHER ==
--- NOTE | 2017-06-15 15:41 | EDPHY ---
H & P Stated Complaint: NOSE BLEED ON COUMADIN HPI/ROS: HPI CHIEF COMPLAINT: Epistaxis on Coumadin. HISTORY OF PRESENT ILLNESS: Patient very pleasant 86-year-old female she presents emergency room with right Fraser epistaxis intermittently over the past 3 days however could not get his stops in 630 this morning. Denies trauma. She is on Coumadin. She was due for an INR checked today but did not get it. She presents emergency room with ongoing right epistaxis. Has much improved since arrival. Past Medical History: Hypertension, CVA, CHF, mi, on Coumadin Past Surgical History: Cardiac stents Social History: Denies daily use of drugs alcohol tobacco products Family History: Noncontributory ROS REVIEW OF SYSTEMS: A comprehensive 10 point review of systems is otherwise negative aside from elements mentioned in the history of present illness. Exam Constitutional triage nursing summary reviewed, vital signs reviewed, awake/ alert. Eyes normal conjunctivae and sclera, EOMI, PERRLA. HENT right Fraser epistaxis anterior bleed, slow venous ooze, left near normal, posterior pharynx normal, no posterior pharynx blood. normal inspection, atraumatic, moist mucus membranes, no epistaxis, neck supple/ no meningismus, no raccoon eyes. Respiratory clear to auscultation bilaterally, normal breath sounds, no respiratory distress, no wheezing. Cardiovascular rate normal, regular rhythm, no murmur, no edema, distal pulses normal. Gastrointestinal soft, non-tender, no rebound, no guarding, normal bowel sounds, no distension, no pulsatile mass. Genitourinary no CVA tenderness. Musculoskeletal no midline vertebral tenderness, full range of motion, no calf swelling, no tenderness of extremities, no meningismus, good pulses, neurovascularly intact. Skin pink, warm, & dry, no rash, skin atraumatic. Neurologic awake, alert and oriented x 3, AAOx3, moves all 4 extremities equally, motor intact, sensory intact, CN II-XII intact, normal cerebellar, normal vision, normal speech. Psychiatric normal mood/affect. Heme/Lymph/Immune no lymphadenopathy. Differential Diagnosis: Includes but is not limited to in a particular order epistaxis on Coumadin, right anterior near bleed. Medical Decision Making: Plan for this patient check INR. Also will need to place a rhino rocket packing right near given she has had 3 days of intermittent epistaxis. I feel she will benefit from rhino rocket for 2-3 days. Re-evaluation: 1638: Re-evaluation at this time no further epistaxis of the right Fraser. She had a nasal clamp on for 30 minutes. There is no active bleeding. The nasal clamp will be removed at this time and will monitor for further bleeding. If she does not have any continued bleeding she can go home. INR appropriate level. 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 Hypertension. Diabetes. CVA. CHF. Total knee replacement. [place]. Renal insufficency. CHF - Social History Smoking Status: Former smoker Constitutional: Initial Vital Signs Temperature (C) 36.7 C 06/15/17 15:12 Heart Rate 70 06/15/17 15:12 Respiratory Rate 18 06/15/17 15:12 Blood Pressure 173/72 H 06/15/17 15:12 O2 Sat (%) 93 06/15/17 15:12 O2 Delivery Mode Room Air Allergies/Adverse Reactions: Iodinated Contrast Media - Oral and [Iodinated Contrast Media - IV Dye] Allergy (Severe, Verified 03/06/17 13:22) renal failure Penicillins Allergy (Mild, Verified 03/06/17 13:22) Rash contrast Allergy (Uncoded 01/23/15 17:29) Home Medications: Medication Instructions Recorded Aspirin EC [Aspirin EC 81 mg (*)] 81 mg PO DAILY 01/23/15 Insulin Glargine [Lantus 100 11 units SC HS #1 btl 02/08/15 UNITS/ML (*)] Insulin Lispro [humALOG LISPRO 100 0 unit SC TIDMEAL #1 btl 02/08/15 units/ml (*)] Amiodarone HCl [Pacerone (*)] 200 mg PO DAILY 04/07/17 Atorvastatin Calcium [Lipitor 40 40 mg PO DAILY 04/07/17 mg (*)] Furosemide [Lasix 40 MG (*)] 40 mg PO DAILY 04/07/17 Heparin [Heparin SC 5000 unit/0.5 5,000 unit SC Q12 05/09/17 ml (*)] Metoprolol Tartrate [Lopressor 50 50 mg PO BID 04/07/17 mg (*)] Warfarin Sodium [Coumadin 2MG (*)] 2 mg PO WE@16 04/07/17 Warfarin Sodium [Coumadin 4MG (*)] 4 mg PO TUTH@04/07/17 Medical Decision Making - Data Points Laboratory Results: 06/15/17 15:50 PT 27.8 SEC H SEC (12.0-15.0) INR 2.56 H (0.83-1.16) APTT 33.5 SEC SEC (23.0-38.0) Medications Given: Discontinued Medications Oxymetazoline HCl (Afrin Nasal [place]) 2 sprays EACHNARE EDNOW ONE Stop: 06/15/17 15:49 Last Admin: 06/15/17 15:53 Dose: 2 spray Departure - Departure Disposition: Home, Routine, Self-Care Clinical Impression: Epistaxis Condition: Good Instructions: Nosebleed (ED) Additional Instructions: 1. Return emergency room if recurrence of epistaxis. Hold direct pressure for 30 minutes. If your unable to get. Return emergency room. 2. Return to the emergency room if you have worsening bleeding or questions or concerns Referrals: Chery Joseph MD [Primary Care Provider] - As per Instructions Aleksey Weir MD [Medical Doctor] - As per Instructions
[2017-06-15] MEDS ORDERED: OXYMETAZOLINE 30 ML NASAL SPRAY EACHNARE ONE (15:48)
[2017-06-15 16:09] LABS: INR 2.56 (0.83-1.16); PROTIME(PATIENT) 27.8 SEC (12.0-15.0)
[2017-06-15 16:10] LABS: APTT 33.5 SEC (23.0-38.0)
[2017-06-15 17:04] VITALS: BP 173/74; PULSE 66; RESP 14; TEMP 97.7; O2SAT 94
== END 2017-06-15 17:04 | disposition home or self-care (01) ==
DX: R04.0 Epistaxis (principal); I11.0 Hypertensive heart disease with heart failure; I50.9 Heart failure, unspecified; I25.2 Old myocardial infarction; E11.9 Type 2 diabetes mellitus without complications; Z79.01 Long term (current) use of anticoagulants; Z79.4 Long term (current) use of insulin; Z79.82 Long term (current) use of aspirin; Z86.73 Personal history of transient ischemic attack (TIA), and cerebral infarction without residual deficits; Z95.5 Presence of coronary angioplasty implant and graft; Z87.891 Personal history of nicotine dependence

== ENCOUNTER → 2017-10-26 | Outpatient (CLI) | payer OTHER ==
--- NOTE | 2017-10-27 08:23 | CPEEG ---
[f rep st] ELECTROENCEPHALOGRAM A 4-HOUR VIDEO EEG DATE OF STUDY: INTERPRETATION: This 4-hour video EEG recording is abnormal due to the presence of potentially epileptogenic abnormalities over the left frontotemporal head region. These findings would be consistent with a focal seizure disorder. In addition, there was a mild degree of bitemporal slowing, maximal left. These findings would be consistent with a mild focal disturbance of cerebral function in these regions. No clinical events or electrographic seizures were recorded during the video EEG monitoring session. REPORT: This 4-hour video EEG contains 9-10 Hz alpha activity to the posterior head regions. There was a mild degree of bitemporal slowing present on an intermittent basis, maximal left. This was primarily composed of theta frequency activity or low amplitude delta activity. There was no specific abnormal activation with photic stimulation or hyperventilation. The primary feature of this recording was the presence of left temporal intermittent rhythmic delta activity (TIRDA) and rare activation of left frontotemporal sharp waves during sleep. The patient also had a physiologic drowsy pattern of intermittent frontal rhythmic slowing. There were no clinical events or electrographic seizures recorded during the video EEG monitoring session. /[id number]/MODL MTDD
== END ==
LOC: FCPNEURO 07:54
PROVIDERS: ATTEND Psychiatry & Neurology Neurology
DX: R41.3 Other amnesia (principal)